=== PATIENT | female | born 1980 | race Caucasian/White ===

== ENCOUNTER → 2016-07-05 | Outpatient (CLI) | payer OTHER ==
[~2016-07-05] MED LIST: ALBU1AER9 INH; ALBUAER2 INH; BCPILLS PO; PANT40TA PO; PRED20TA PO; PRENTAB26 PO; VALA500T60 PO; VNTHFA/IN INH
[2016-07-05 15:59] LABS: URINE APPEARANCE CLEAR (CLEAR); URINE BILIRUBIN NEG (NEG); URINE COLOR YELLOW; URINE EPITHELIAL CELL AUTO >30 /lpf (0-5); URINE NITRITE NEG (NEG); URINE PH 5.5 (4.5-7.5); URINE SPECIFIC GRAVITY 1.019 (1.000-1.030); UROBILINOGEN NEG (NEG)
[2016-07-05 16:00] LABS: MANUAL MICROSCOPIC REQUIRED? NO; REVIEW REQ? NO
== END | disposition home or self-care (01) ==
LOC: C.LABSPEC 16:06
PROVIDERS: ATTEND Obstetrics & Gynecology
DX: O09.529 Supervision of elderly multigravida, unspecified trimester (principal); Z3A.00 Weeks of gestation of pregnancy not specified

== ENCOUNTER → 2016-07-09 | Outpatient (CLI) | payer OTHER ==
[~2016-07-09] MED LIST changes: -PRED20TA PO
[2016-07-09 14:33] LABS: BASO % 0.2 %; BASO ABS # 0.02 K/uL (0-0.2); COMPLETE YES; EOS % 1.2 %; HEMATOCRIT 35.7 % (37-47); IG% 0.2 %; LYMPH % 22.2 %; LYMPH ABS # 2.41 K/uL (1.2-3.4); MEAN CORPUSCULAR HEMOGLOBIN 30.7 pg (25-34); MEAN CORPUSCULAR HGB CONC 33.3 g/dl (32-36); MEAN PLATELET VOLUME 11.3 fL (7.4-10.4); NEUT % 72.2 %; PLATELET COUNT 391 K/uL (130-400); RED BLOOD COUNT 3.88 M/uL (4.2-5.4); WHITE BLOOD COUNT 10.88 K/uL (4.8-10.8)
[2016-07-13 15:12] LABS: CHLAMYDIA TRACH RNA*** NOT DETECTED (NOT DETECTED); GC (NEIS GONORRHOEAE)RNA** NOT DETECTED (NOT DETECTED)
== END | disposition home or self-care (01) ==
LOC: C.LAB1850 13:16
PROVIDERS: ATTEND Obstetrics & Gynecology
DX: O09.529 Supervision of elderly multigravida, unspecified trimester (principal); Z3A.00 Weeks of gestation of pregnancy not specified

== ENCOUNTER → 2016-09-02 | Outpatient (CLI) | payer OTHER ==
[~2016-09-02] MED LIST changes: +OXYC-57 PO
[2016-09-02 10:19] LABS: GTGD 50 Grams
== END | disposition home or self-care (01) ==
LOC: C.LAB 07:40
PROVIDERS: ATTEND Obstetrics & Gynecology
DX: O09.529 Supervision of elderly multigravida, unspecified trimester (principal)

== ENCOUNTER → 2016-12-02 | Outpatient (CLI) | payer OTHER ==
[2016-12-02 09:47] LABS: HEMATOCRIT 31.7 % (37-47)
[2016-12-02 10:05] LABS: GTGD 50 Grams
[2016-12-02 10:16] LABS: URINE APPEARANCE CLEAR (CLEAR); URINE BILIRUBIN NEG (NEG); URINE COLOR YELLOW; URINE EPITHELIAL CELL AUTO >30 /lpf (0-5); URINE NITRITE NEG (NEG); URINE PH 6.5 (4.5-7.5); URINE SPECIFIC GRAVITY 1.021 (1.000-1.030); UROBILINOGEN NEG (NEG)
[2016-12-02 10:17] LABS: MANUAL MICROSCOPIC REQUIRED? NO; REVIEW REQ? NO
== END | disposition home or self-care (01) ==
LOC: C.LAB 07:49
PROVIDERS: ATTEND Obstetrics & Gynecology
DX: O09.522 Supervision of elderly multigravida, second trimester (principal); Z3A.00 Weeks of gestation of pregnancy not specified

== ENCOUNTER 2017-02-14 07:30 | Inpatient (IN) | payer OTHER ==
--- NOTE | 2017-02-09 15:00 | HISTORY & PHYSICAL EXAMINATION ---
DATE OF ADMISSION: 02/14/2017 CHIEF COMPLAINT: Planned section. HISTORY OF PRESENT ILLNESS: A 36-year-old 2, para 1-0-0-1 today at 38 and 6/7 weeks for planned section after 39 weeks with an EDC of 02/17/2017. The is planned for 02/14/2017. The patient reports good movement. She denies any vaginal bleeding or leaking of fluid. She reports no contractions. She is taking Valtrex for history of HSV. She is getting weekly NSTs due to her advanced maternal age and they have been normal. She has had a previous section and desires repeat section. She declines tubal ligation. COURSE: As noted above. She is group B strep positive as well. LABS: Rh positive, rubella immune, group B strep positive. OBSTETRIC HISTORY: Prior at 40 and 4/7 weeks. GYNECOLOGIC HISTORY: No abnormal Pap smears. History of HSV, currently being treated with Valtrex for prevention of outbreak. PAST MEDICAL HISTORY: History of kidney stones, asthma. PAST SURGICAL HISTORY: Cholecystectomy, wisdom tooth extraction, section. ALLERGIES: PENICILLIN GIVES A RASH, PISTACHIOS GIVE A RASH. MEDICATIONS: 1. vitamins. 2. Valtrex. 3. ProAir. REVIEW OF SYSTEMS: Ten system within the chart and negative with the exception of history of GERD, HSV infection, asthma. PHYSICAL EXAMINATION: VITAL SIGNS: Height 4 feet 11, weight 190 pounds, blood pressure 116/64. Urine dip negative for protein. GENERAL: Well-developed, well-nourished female in no acute distress. HEART: Regular rate and rhythm. LUNGS: Clear to auscultation bilaterally. ABDOMEN: Soft, gravid, nontender. cephalic by Ry's maneuvers. EXTREMITIES: No edema. ASSESSMENT: 1. A 39-week intrauterine on day of her planned . 2. Prior , desires repeat . PLAN: The patient will be planning repeat due to prior history of . She declines . She declines tubal ligation. Risks, alternatives and complications of the procedure were discussed with the patient and included but were not limited to bleeding, infection, anesthesia, injury to surrounding structures, injury to structures. The patient desires to proceed and a consent form is signed. Again, she will be over 39 weeks on the day of her surgery.
[2017-02-09 15:11] VITALS: BMI 39.0
--- NOTE | 2017-02-09 15:41 | PAT Medication Instructions ---
Service Date Feb 09, 2017. Current Home Medication List Albuterol Hfa (Ventolin Hfa), 2-4 PUFFS INH Q6H PRN for SOB/Wheezing Multivit/Min/Iron/Fol Ac/Pren ( Vitamin), 1 TAB PO QPM Pantoprazole (Protonix), 40 MG PO QPM Valacyclovir (Valtrex), 500 MG PO QPM Medication Instructions For Your Scheduled Surgery - Take the following medications the morning of surgery with a sip of water: Albuterol Hfa (Ventolin Hfa), 2-4 PUFFS INH Q6H PRN for SOB/Wheezing (if needed , AND BRING WITH YOU TO THE HOSPITAL) - Take the following medications as scheduled the night before surgery: Pantoprazole (Protonix), 40 MG PO QPM Valacyclovir (Valtrex), 500 MG PO QPM Multivit/Min/Iron/Fol Ac/Pren ( Vitamin), 1 TAB PO QPM OTHERWISE NOTHING TO EAT OR DRINK AFTER MIDNIGHT If you have any questions please call us at [phone] or [phone] or [phone]
[2017-02-09 16:08] LABS: BASO % 0.1 %; BASO ABS # 0.01 K/uL (0-0.2); COMPLETE YES; EOS % 0.4 %; HEMATOCRIT 29.7 % (37-47); IG% 0.2 %; LYMPH % 17.6 %; LYMPH ABS # 2.25 K/uL (1.2-3.4); MEAN CELL VOLUME 89.2 fL (80-100); MEAN CORPUSCULAR HEMOGLOBIN 28.2 pg (25-34); MEAN CORPUSCULAR HGB CONC 31.6 g/dl (32-36); MEAN PLATELET VOLUME 10.4 fL (7.4-10.4); MONO % 4.2 %; NEUT % 77.5 %; PLATELET COUNT 374 K/uL (130-400); RED BLOOD COUNT 3.33 M/uL (4.2-5.4); WHITE BLOOD COUNT 12.76 K/uL (4.8-10.8)
[~2017-02-14] VITALS: Ht 149.9 cm; Wt 86.4 kg
[2017-02-14] VITALS (11 sets, daily range): BP systolic 102–117; BP diastolic 65–78; PULSE 68–78; TEMP 37–37.2; O2SAT 96–100; Ht 149.9 cm; Wt 86.4 kg
[~2017-02-14 07:30] MED LIST changes: -ALBU1AER9 INH; -ALBUAER2 INH; -BCPILLS PO; +CEFAZOLIN IV 2,000 MG in DEXTROSE 5% 50ML IV SCH; +CITRIC ACID/SODIUM CITRATE 15 ML UDC PO SCH; +LACTATED RINGER'S 1000ML 1,000 ML IV SCH; -OXYC-57 PO
[2017-02-14] MEDS ORDERED: KETOROLAC TROMETHAMINE 30 MG/ML VIAL ONE (08:38)
[2017-02-14] MEDS ORDERED: ONDANSETRON INJ 2 MG/ML 2 ML VIAL ONE ×2 (08:38→10:55)
[2017-02-14] MEDS ORDERED: FENTANYL CITRATE INJ 50 MCG/1 ML 2 ML VIAL ONE (08:39)
[2017-02-14] MEDS ORDERED: MoRPHine SULFATE PF 1 MG/ML 10 ML AMP/VIAL ONE (08:39)
--- NOTE | 2017-02-14 09:59 | History & Physical Bridge Note ---
H&P Re-Evaluation Bridge Note: I have examined the patient, reviewed the History & Physical and in the interval since the performance of the History & Physical I have noted the following changes of clinical significance: No changes noted
[2017-02-14] MEDS ORDERED: PHENYLEPHRINE 100MCG/ML 5ML SYR ONE (10:27)
[2017-02-14] MEDS ORDERED: OXYTOCIN INJ 10 UNITS/ML VIAL ONE (10:27)
[2017-02-14] MEDS ORDERED: LACTATED RINGER'S 1000ML 1,000 ML IV SCH (10:51)
[2017-02-14] MEDS ORDERED: ALBUTEROL HFA 8 GM INHALER INH PRN (11:00)
--- NOTE | 2017-02-14 11:05 | [facility] Operative Report ---
Operative Report Operative Date Feb 14, 2017. Pre-Operative Diagnosis 39 Weeks IUP; Previous Caesarean Section; Pt Desires Repeat Caesarean Section. Post-Operative Diagnosis Same as Preop Procedure(s) Performed Repeat low transverse section Surgeon Dr. Clemente Treasury Accountant Surgeon(s) Dr. Barrientos Estimated Blood Loss 600 ML Findings Viable male infant, APGARs 9/9. Normal-appearing uterus, fallopian tubes, and ovaries bilaterally. Fluids 1300 Specimens Placenta (Hold) Cord Blood Drains Swift, 200 mL Anesthesia Spinal Complication(s) None Disposition L&D I attest to the content of the Intraoperative Record and any orders documented therein. Any exceptions are noted below.
[2017-02-14] MEDS ORDERED: OXYTOCIN INJ 30 UNITS in LACTATED RINGER'S 1000ML 1,000 ML IV SCH (11:15)
[2017-02-14] MEDS ORDERED: SODIUM CHLORIDE 0.9% 1000ML 1,000 ML IV PRN (11:21)
[2017-02-14] MEDS ORDERED: NALOXONE HCL INJ 1 MG in SODIUM CHLORIDE 0.9% 1000ML 1,000 ML IV PRN (11:21)
[2017-02-14] MEDS ORDERED: LACTATED RINGER'S 1000ML 500 ML IV PRN (11:21)
[2017-02-14] MEDS ORDERED: NALOXONE HCL INJ 0.08 MG in SYRINGE 1.8 ML IV PRN (11:21)
--- NOTE | 2017-02-14 11:29 | OPERATIVE REPORT ---
DATE OF OPERATION: 02/14/2017 PREOPERATIVE DIAGNOSES: 1. 39-week intrauterine . 2. Prior section, desires repeat section. 3. Declines vaginal after . POSTOPERATIVE DIAGNOSES: Same. PROCEDURE: Repeat low transverse section. SURGEON: Dr. Lidia Clemente. REACTOR SERVICE OPERATOR: Dr. Danitza Barrientos. IV FLUIDS: 1300 mL ESTIMATED BLOOD LOSS: 600 mL ANESTHESIA: Spinal with Duramorph. INDICATIONS: A 36-year-old 2, para 1-0-0-1, at 39+ weeks, who desires section for a history of prior section, declines . FINDINGS: Normal uterus, tubes and ovaries bilaterally. Viable female infant, Apgars 9 and 9. PROCEDURE IN DETAIL: The patient was taken to the operating room and identified. After adequate spinal anesthesia, the patient placed in a supine position with a leftward tilt and prepped and draped in the usual sterile fashion. A Pfannenstiel skin incision was carried down to the underlying layer of fascia. The fascia was nicked in the midline and this opening was extended laterally using Bajwa scissors. Lisa clamps were placed on the superior and inferior aspects of the fascial incision, tenting it upwards, and the underlying rectus muscles were dissected off the overlying fascia both sharply and bluntly using Bajwa scissors. The rectus muscles were bluntly in the midline. The peritoneal cavity was bluntly entered into. It was opened bluntly and sharply using Bajwa scissors and the opening was stretched. The bladder blade was placed. The vesicouterine peritoneum was elevated with a Ara clamp. It was opened up into sharply using Metzenbaum scissors and extended laterally and the bladder flap was created digitally. The bladder blade was replaced. The knife was used to create a hysterotomy, that was then stretched. The lasting machine operator bed's hand was placed through the hysterotomy and the bladder blade was removed. The head was flexed, and with fundal pressure, it was delivered. The nose and mouth were bulb suctioned. A loose nuchal cord x1 was reduced. The shoulders and body were then delivered with ease with further fundal pressure. The cord was clamped and cut, and the infant was handed off to the awaiting pediatricians. Cord blood was obtained. Placenta was manually expressed. Uterus was exteriorized and cleared of all clots and debris. The hysterotomy was closed in a running interlocking fashion using 0 Vicryl, followed by a second imbricating layer of 0 Vicryl. Hemostasis was inadequate the left aspect of the hysterotomy and a lateral stitch incorporating the uterine vessels was placed. Hemostasis was adequate. The uterus was returned to the abdomen. Without pressure on the vessels, it was removed and no additional bleeding on that side was noted. At this point, the Syeda hemostatic agent was placed on the left aspect of the uterine vessels posteriorly. The uterus was returned to the abdomen. The gutters were cleared of all clots and debris. The hysterotomy was reinspected and noted to be hemostatic. The fascia was then closed in a running fashion using 0 Vicryl. Subcutaneous fat was copiously irrigated. The subcutaneous tissues then reapproximated using 2-0 chromic. The skin was then closed in a subcuticular fashion using 4-0 Monocryl. All sponge, lap and needle counts were correct x2. The patient was returned to the recovery room in stable condition. I attest to the content of the Intraoperative Record and any orders documented therein. Any exceptions are noted below. ROBINSON
[2017-02-14] MEDS ORDERED: EpHEDrine SULFATE INJ 50 MG/ML AMP IV PRN (11:30)
[2017-02-14] MEDS ORDERED: DC INTRASPINAL MORPHINE SCH (11:30)
[2017-02-14] MEDS ORDERED: DiphenhydrAMINE HCL 50 MG/ML VIAL IV PRN (11:30)
[2017-02-14] MEDS ORDERED: NALOXONE HCL 0.4 MG/1 ML VIAL/CARP IV PRN (11:30)
[2017-02-14] MEDS ORDERED: PROMETHAZINE HCL INJ 6.25 MG in SODIUM CHLORIDE 0.9% 50ML 50 ML IV PRN (11:30)
[2017-02-14] MEDS ORDERED: MoRPHine SULFATE PF 1 MG/ML 10 ML AMP/VIAL EPI PRN (11:30)
[2017-02-14] MEDS ORDERED: MEPERIDINE HCL 25 MG/ML CARP IV PRN (11:30)
[2017-02-14] MEDS ORDERED: NO NARCOTICS OR SEDATIVES SCH (11:30)
[2017-02-14] MEDS ORDERED: ONDANSETRON INJ 2 MG/ML 2 ML VIAL IV PRN (11:30)
[2017-02-14] MEDS ORDERED: NALBUPHINE HCL INJ 10 MG/ML AMP IV PRN (11:30)
[2017-02-14] MEDS ORDERED: MoRPHine SULFATE 2 MG/ML CARP IV PRN (11:30)
[2017-02-14] MEDS: SIMETHICONE 80 MG CHEW PO SCH ×3 (13:00→20:02)
--- NOTE | 2017-02-14 15:58 | Anesthesiology Progress Note ---
Anesthesia Post Op Note Date & Time Feb 14, 2017 at 15:58 Notes Mental Status: alert / awake / arousable, participated in evaluation Pt Amnestic to Procedure: Yes Nausea / Vomiting: adequately controlled Pain: adequately controlled Airway Patency, RR, SpO2: stable & adequate BP & HR: stable & adequate Hydration State: stable & adequate Neuraxial Anesthesia: was administered, sensory block is resolving Anesthetic Complications: no major complications apparent
[2017-02-14] MEDS: KETOROLAC TROMETHAMINE 30 MG/ML VIAL IV. PRN (17:12)
[2017-02-14] MEDS: DOCUSATE SODIUM 100 MG CAP PO SCH (20:02)
[2017-02-14] MEDS: PANTOprazole SOD 40 MG TAB PO SCH (21:01)
[2017-02-15] VITALS (11 sets, daily range): BP systolic 103–139; BP diastolic 65–88; PULSE 76–92; TEMP 36.4–38; O2SAT 95–99
[2017-02-15] MEDS: KETOROLAC TROMETHAMINE 30 MG/ML VIAL IV. PRN (00:04)
[2017-02-15] MEDS ORDERED: KETOROLAC TROMETHAMINE 30 MG/ML VIAL IV. PRN (04:00)
[2017-02-15] MEDS ORDERED: OXYCODONE/ACETAMINOPHEN 5-325 TAB PO PRN (04:00)
[2017-02-15] MEDS ORDERED: ONDANSETRON INJ 2 MG/ML 2 ML VIAL IV PRN (04:00)
[2017-02-15] MEDS ORDERED: MEPERIDINE HCL 50 MG/ML CARP IV PRN ×2 (04:00)
[2017-02-15] MEDS ORDERED: PROMETHAZINE HCL INJ 25 MG in SODIUM CHLORIDE 0.9% 50ML 50 ML IV PRN (04:00)
[2017-02-15] MEDS ORDERED: DiphenhydrAMINE HCL 50 MG/ML VIAL IV PRN (04:00)
[2017-02-15] MEDS: IBUPROFEN 600 MG TAB PO PRN ×5 (04:39→22:23)
[2017-02-15] MEDS: OXYCODONE/ACETAMINOPHEN 5-325 TAB PO PRN ×5 (04:40→22:24)
[2017-02-15 06:20] LABS: BASO % 0.2 %; BASO ABS # 0.02 K/uL (0-0.2); COMPLETE YES; EOS % 1.3 %; HEMATOCRIT 27.6 % (37-47); IG% 0.3 %; LYMPH % 10.8 %; LYMPH ABS # 1.34 K/uL (1.2-3.4); MEAN CELL VOLUME 87.9 fL (80-100); MEAN CORPUSCULAR HEMOGLOBIN 28.7 pg (25-34); MEAN CORPUSCULAR HGB CONC 32.6 g/dl (32-36); MONO % 3.2 %; NEUT % 84.2 %; PLATELET COUNT 311 K/uL (130-400); RED BLOOD COUNT 3.14 M/uL (4.2-5.4); WHITE BLOOD COUNT 12.38 K/uL (4.8-10.8)
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
[2017-02-15] MEDS: SIMETHICONE 80 MG CHEW PO SCH ×4 (08:49→20:28)
[2017-02-15] MEDS: DOCUSATE SODIUM 100 MG CAP PO SCH ×2 (08:49→20:28)
[2017-02-15] MEDS: PRENATAL VITAMIN TAB PO SCH (08:49)
[2017-02-15] MEDS: PANTOprazole SOD 40 MG TAB PO SCH (22:24)
[2017-02-16] MEDS: IBUPROFEN 600 MG TAB PO PRN ×3 (03:22→12:27)
[2017-02-16] MEDS: OXYCODONE/ACETAMINOPHEN 5-325 TAB PO PRN ×2 (03:24→10:55)
[2017-02-16] MEDS ORDERED: OXYC-57 PO (07:27)
--- NOTE | 2017-02-16 07:28 | Discharge Instructions ---
Discharge Instructions Date of Service Feb 16, 2017. Admission Reason for Admission: Previous Section Discharge Discharge Diagnosis / Problem: s/p repeat c/s Discharge Goals Goal(s): Routine recovery after Medications Continue Dispensed Medications: supercream, lansinoh Activity Recommendations Activity Limitations: per Instructions/Follow-up section . Instructions / Follow-Up Instructions / Follow-Up ACTIVITY RECOMMENDATIONS: * Gradual return to full activity over the next 2-3 weeks. * No lifting - nothing heavier than baby over the next 2-3 weeks. * Do not engage in vigorous exercise, sexual activity or sports until cleared by your physician. * Do not drive or operate any motorized equipment until cleared by your physician. * You may shower/bathe daily. MEDICATIONS: For discomfort or pain, you may use Acetaminophen (Tylenol), Ibuprofen (Advil), or Naproxen (Aleve) following the package directions. For constipation you may use Colace following the package directions. BREAST CARE: If you are not breast feeding: * Wear a supportive bra 24 hours a day for one to two weeks. * Avoid stimulating your breasts and nipples as much as possible during the first few weeks after delivery. * When taking a shower, have the warm water hit your back, not breasts. * When your breasts feel full, apply ice packs. Usually three to four times a day helps ease the discomfort. * Take a mild pain medication (Tylenol / Motrin) when you are uncomfortable. If breast feeding: * Use breast milk to lubricate nipples. Lansinoh cream may be used for sore nipples. You do not need to remove cream prior to breast feeding. If using a different brand of cream, check the label for directions regarding removal of cream prior to nursing. * Wear a supportive bra. * If having problems with breasts or breast feeding, call a dairy feed sales consultant or your health care provider. SPECIAL CARE INSTRUCTIONS: When you are discharged from the hospital, it is important for you to follow the instructions listed below: * During the first week at home, you should be able to care for yourself and your baby. In addition, the usual light household activities are encouraged. * Limit your activities to the way you feel. Do not try to clean the house or move furniture. Be sensible. * If you actively engage in sports and have done so up until the time of your delivery, you may resume these activities as soon as you feel able. This may take up to one month or even longer. Use good judgment. * Continue to take your vitamins for at least six weeks after the of your baby. * Your diet need not be limited unless you were on a special diet before your delivery. Breast-feeding mothers need around 2500 calories per day and at least 64-80 ounces of fluid per day (8 to 10 glasses). * You should eat foods from the four major food groups. Crash diets or fad diets are to be avoided. Eating lean meats, fresh fruits and vegetables, low-fat dairy products, high fiber foods and a regular exercise program, will help you get back to your pre- weight without putting your health at risk. * Constipation is sometimes a problem after delivery. Take a mild laxative as needed. If breast feeding, Milk of Magnesia is acceptable to use. You may use a suppository or Fleets enema. * A daily shower or tub bath is suggested. Wash incision daily with warm soapy water and pat dry. It doesn't need to be covered unless drainage is present. * A bloody vaginal discharge will usually continue until around four weeks . A small amount of bleeding may continue for as long as six weeks. Vaginal discharge changes from the bright red bleeding after delivery to pink then brownish and finally yellowish-pink before becoming white and disappearing. * Bleeding may increase with activity. Your first period may come in 4-8 weeks. If you are breast feeding, your period may be delayed even longer. * Ridgely (sex) can begin whenever both you and your partner feel comfortable and do not have any form of genital infection. It is recommended that you wait at least six weeks for internal and external healing to occur. If you have questions, please talk to your health care practitioner. A condom should be used to prevent infection and . * Foreplay, gentle intercourse and lubrication is very important the first several times to prevent pain. A water-based lubricant such as K-Y jelly or Astroglide may be used. * If you have RH negative blood and your baby is RH positive, you will receive RHOGAM by injection prior to discharge. The nurse will give you a card to keep with you that has the date and place that you received RHOGAM after delivery. * During your care, you had a Rubella screen done to check for the presence of rubella antibodies in your blood. If your test was negative, you will receive a Rubella vaccine prior to discharge. This vaccine may cause a fever, soreness at the injection site and flu-like symptoms. If these symptoms persist, notify your health care practitioner. is not advised for one month after a Rubella vaccine. * Verbalizes understanding of car seat law as reviewed with patient nursing. * Car Seat hand-out given and reviewed with patient by nursing. * Shaken baby information reviewed with patient by nursing. Call you doctor if: * Heavy bleeding (saturating several pads an hour) or passing clots the size of your fist. * A fever >101 degrees F (38.3 degrees C) on two occasions four hours apart and /or chills. * Unusual pain in the pelvic or vaginal areas. * Call the doctor for any increased redness, drainage or swelling around the incision and any pain unrelieved by prescribed pain medication. * "Baby Blues" lasting longer than two weeks. If you have any questions or concerns, call your health care practitioner at . FOLLOW UP VISIT: * Please call the office at to schedule a 6 week examination. It is important you keep this appointment. It is important for you to make arrangements for either yearly or twice yearly check-ups thereafter. Current Hospital Diet Patient's current hospital diet: Regular OB Diet Discharge Diet Recommended Diet: Regular Diet Procedures Procedures Performed: Repeat low transverse section Pending Studies Studies pending at discharge: no Medical Emergencies . Who to Call and When: Medical Emergencies: If at any time you feel your situation is an emergency, please call [phone] immediately. . Non-Emergent Contact Non-Emergency issues call your: Electrical Continuity Inspector . . "Provider Documentation" section prepared by Linda Hill. . VTE Core Measure Inpt VTE Proph given/why not?: Treatment not indicated [place] Drug Monitoring Program Search Results: patient reviewed within database, no issues identified
[2017-02-16 07:45] VITALS: BP_SYST 121; BP_SYST 124; BP_DIAS 83; PULSE 80; PULSE 83; TEMP 37.3; O2SAT 98
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
[2017-02-16] MEDS: DOCUSATE SODIUM 100 MG CAP PO SCH (08:37)
[2017-02-16] MEDS: SIMETHICONE 80 MG CHEW PO SCH ×2 (08:38→12:26)
[2017-02-16] MEDS: PRENATAL VITAMIN TAB PO SCH (08:38)
[2017-02-16 15:01] VITALS: BP_DIAS 83; PULSE 80; TEMP 37.3
== END 2017-02-16 15:01 | disposition home or self-care (01) | DRG 766 ==
LOC: EDSTATUS 07:30 → C.LD 07:38 → C.OBG 15:16
PROVIDERS: ADMIT Obstetrics & Gynecology; ATTEND Obstetrics & Gynecology
PROC: 10D00Z1 Extraction of Products of Conception, Low, Open Approach (ICD-10-PCS; principal; 2017-02-14 09:30)
DX: O34.211 Maternal care for low transverse scar from previous cesarean delivery (principal); O09.523 Supervision of elderly multigravida, third trimester; O99.824 Streptococcus B carrier state complicating childbirth; Z3A.39 39 weeks gestation of pregnancy; Z37.0 Single live birth; Z79.899 Other long term (current) drug therapy